=== PATIENT | female | born 1980 | race Caucasian/White ===

== ENCOUNTER 2018-08-19 18:14 | Emergency (ER) | payer BC, OTHER ==
[2018-08-19 18:37] VITALS: BP 111/71; PULSE 76; RESP 18; TEMP 97.8; O2SAT 99
== END 2018-08-19 19:30 | disposition left against medical advice (07) ==
LOC: C.ER 18:14
DX: Z02.89 Encounter for other administrative examinations (principal); F19.10 Other psychoactive substance abuse, uncomplicated